=== PATIENT | female | born 1955 | race Hispanic/Latino ===

== ENCOUNTER 2017-11-03 14:47 | Observation (INO) | payer OTHER, SELFPAY ==
[2017-11-03 15:08] LABS: #Eosinphils 0.1 thou/uL (0.0-0.7); #Lymphocytes 1.8 thou/uL (1.20-3.40); #Monocytes 0.7 thou/uL (0.11-0.59); #Neutrophils 4.9 thou/uL (1.40-6.50); %Basophils 0.1 % (0.0-1.0); %Eosinophils 1.2 % (0.0-10.0); %Lymphocytes 23.6 % (21.0-51.0); %Monocytes 9.4 % (0.0-10.0); %Neutrophils 65.6 % (42.0-75.0); Hemoglobin 12.3 g/dL (12.0-16.0); Mean Corpuscular HGB CONC 32.9 g/dL (32.0-36.0); Mean Corpuscular Hemoglobin 30.1 pg (27.0-31.0); Mean Corpuscular Volume 91.5 fl (81.0-99.0); Mean Platelet Volume 8.6 fL (7.4-10.4); Platelet Count 199 thou/uL (130-400); RBC Distribution Width 13.7 % (11.5-14.5); Red Blood Cell (RBC) Count 4.08 mill/uL (4.20-5.40); White Blood Cell (WBC) Count 7.5 thou/uL (4.8-10.8)
[2017-11-03 15:28] LABS: ALT (SGPT) 52 U/L (8-55); AST (SGOT) 28 U/L (5-34); Alkaline Phosphatase 164 U/L (40-150); Anion Gap 12 mmol/L (10-20); BUN (Urea Nitrogen) 12 mg/dL (9.8-20.1); Bilirubin, Total 0.4 mg/dL (0.2-1.2); Calc. Creatinine Clearance 0 mL/min (70-130); Calcium 9.3 mg/dL (7.8-10.44); Carbon Dioxide 29 mmol/L (22-29); Chloride 106 mmol/L (98-107); Estimated GFR-MDRD 83; Globulin 3.3 g/dL (2.4-3.5); Glucose 119 mg/dL (70-105); Potassium 3.5 mmol/L (3.5-5.1); Protein, Total 7.3 g/dL (6.0-8.3); Sodium 143 mmol/L (136-145)
[2017-11-03 15:28] LABS: Bilirubin Negative (Negative); Blood, Urine Negative (Negative); Clarity CLEAR (Clear); Glucose, Urine (Dipstick) Negative (Negative); Leukocyte Trace (Negative); Nitrite Negative (Negative); Protein, Urine (Dipstick) Negative (Neg-Trace); Specific Gravity, Urine 1.012 (1.002-1.036)
[2017-11-03 15:32] LABS: Bacteria/HPF None Seen HPF (None Seen); Hyaline Casts/LPF 0-3 HYALINE CAST LPF (0-3 Hyaline); RBC/HPF 0-3 HPF (0-3); Squamous Epithelial None Seen HPF (0-3); WBC/HPF 0-3 HPF (0-3)
[2017-11-03] MEDS ORDERED: Nitroglycerin 0.4 MG TAB (25 Tab Bottle) ONE (15:57)
[2017-11-03] MEDS ORDERED: Nitroglycerin 2% Ointment 1 INCH/1 GM Packet ONE (15:57)
--- NOTE | 2017-11-03 16:18 | RAD ---
PORTABLE AP CHEST: Date: 11/03/17 HISTORY: Epigastric pain, bilateral flank pain for 1.5 months. Burning and frequent urination. FINDINGS: Cardiac silhouette and pulmonary vasculature are within normal limits. There is mild prominence of th e interstitial densities at the medial right lung base when compared to the prior exam. No consolidat ion or pleural fluid is seen. There is question of a nodular density overlying the right mid lung whi ch overlies the region of the scapula and anterior first rib. This could be related to superimpositio n of structures, and this was not seen on the prior exam. Lungs are otherwise clear. Vascular calcifi cations seen in the thoracic aorta. No other interval change. IMPRESSION: 1. Question of nodular density overlying left mid lung zone. Follow-up PA and lateral chest x-ray is recommended. 2. Mild nonspecific prominence of interstitial densities medial right lung base. POS: [facility]
[2017-11-03 17:00] LABS: CKMB 0.8 ng/mL (0-6.6); Troponin I Less than 0.010 ng/mL (< 0.028)
[2017-11-03] MEDS ORDERED: Labetalol HCl 100 MG/20 ML VIAL ONE (17:05)
--- NOTE | 2017-11-03 17:12 | CT ---
NONCONTRAST CT ABDOMEN AND PELVIS: Date: 11/03/17 HISTORY: Bilateral flank pain for 4 months. Patient reports burning and frequency with urination. COMPARISON: 02/14/15. FINDINGS: There is a punctate, nonobstructing calculus seen in the mid portion of the right kidney. There is no hydronephrosis and no ureteral calculus is visualized bilaterally. There is mild asymmetric right pe rinephric stranding compared to the left. Pyelonephritis on the right could not be excluded based on this exam. There is a small right pleural effusion. There is mild bibasilar atelectasis. Post cholecystectomy changes are noted. The liver, spleen, pancreas, bilateral adrenal glands, left kidney, and incompletely distended urinar y bladder demonstrate a normal CT appearance. The uterus is not visualized and probably related to prior hysterectomy. The appendix is visualized and filled with gas, and is normal in caliber. There are low density nodular structures in pelvis bilaterally. These structures were also seen on e prior study in 2014 and probably related to patient's ovaries. A tiny amount of free fluid in the pelvis is present. Vascular calcifications are seen in the abdominal aorta and iliac arteries. Multilevel degenerative changes seen in the lumbar spine, as well as visualized lower thoracic spine. There is subcutaneous soft tissue swelling seen at the lateral aspect of the abdomen bilaterally, gre ater on the left. IMPRESSION: 1. Asymmetric perinephric stranding seen on the right. This is overall nonspecific, but pyelonephrit is on the right cannot be entirely excluded. 2. Punctate nonobstructing right renal calculus. 3. No ureteral calculus is seen, and there is no hydronephrosis present. 4. Small right pleural effusion. 5. Hysterectomy. 6. No CT evidence of appendicitis. 7. Small areas of subcutaneous edema in the lower abdominal lateral subcutaneous soft tissues. POS: [facility]
[2017-11-03 18:15] LABS: Troponin I Less than 0.010 ng/mL (< 0.028)
[2017-11-03] MEDS ORDERED: Acetaminophen 325 MG TAB PO PRN (18:52)
[2017-11-03] MEDS ORDERED: Ondansetron HCl/PF 4 MG/2 ML Vial IVP PRN (18:52)
[2017-11-03] MEDS ORDERED: Ondansetron ODT 4 MG TAB SL PRN (18:52)
[2017-11-03 19:01] VITALS: BMI 33.3
[2017-11-03] MEDS ORDERED: Labetalol HCl 100 MG/20 ML VIAL SLOW IVP PRN (19:44)
[2017-11-03 21:09] LABS: Troponin I Less than 0.010 ng/mL (< 0.028)
[2017-11-03] MEDS ORDERED: Lisinopril 20 MG TAB PO SCH (21:30)
[2017-11-03] MEDS ORDERED: Atorvastatin Calcium 20 MG TAB PO SCH (21:45)
[2017-11-03] MEDS ORDERED: Carvedilol 25 MG TAB PO SCH (21:45)
[2017-11-03] MEDS: Ibuprofen 600 MG TAB PO PRN (21:53)
[2017-11-04] MEDS ORDERED: hydrALAZINE 20 MG/ML VIAL SLOW IVP SCH (04:30)
[2017-11-04] MEDS: Ibuprofen 600 MG TAB PO PRN ×2 (05:23→20:15)
[2017-11-04] MEDS: Carvedilol 25 MG TAB PO SCH ×2 (12:45→20:15)
[2017-11-04] MEDS: Lisinopril 20 MG TAB PO SCH (12:45)
[2017-11-04] MEDS: AMOXicillin 250 MG CAP PO SCH ×3 (12:45→20:15)
[2017-11-04] MEDS: Fluticasone Propionate Nasal Spray 16 gm Bottle NASAL SCH ×2 (12:45→20:16)
[2017-11-04] MEDS ORDERED: Insulin Detemir 100 UNITS/ML 20 UNITS in Pre-Filled Syringe 1 EACH SC SCH (13:15)
[2017-11-04] MEDS ORDERED: metFORMIN 500 MG TAB PO SCH (13:15)
[2017-11-04] MEDS ORDERED: HumaLOG 300 UNITS/3 ML VIAL SC SCH (13:15)
--- NOTE | 2017-11-04 14:11 | NM ---
STRESS ONLY NUCLEAR MEDICINE MYOCARDIAL PERFUSION SCAN: 11/04/2017 HISTORY: Chest pain. TECHNIQUE: SPECT imaging of the left ventricular myocardium was obtained during stress following the intravenous administration of 33 millicuries of technetium 99m labeled sestamibi. FINDINGS: No perfusion defect is seen on seen on short axis, vertical long axis, or horizontal long axis SPECT imaging of the left ventricular myocardium. Left ventricular wall motion is normal. The ejection fr action of the left ventricle is estimated at 71% with an EDV of 76 mL and an ESV of 22 mL. IMPRESSION: Unremarkable stress only nuclear medicine myocardial perfusion scan. POS: [facility]
[2017-11-04] MEDS ORDERED: ADENOSINE 60 MG/20 ML VIAL ONE (15:13)
[2017-11-04] MEDS ORDERED: NIFEdipine XL 60 MG TAB PO SCH (17:15)
[2017-11-04] MEDS: metFORMIN 500 MG TAB PO SCH (17:21)
[2017-11-04] MEDS: HumaLOG 300 UNITS/3 ML VIAL SC SCH (17:22)
[2017-11-04] MEDS: Insulin Detemir 100 UNITS/ML 20 UNITS in Pre-Filled Syringe 1 EACH SC SCH (20:15)
[2017-11-04] MEDS ORDERED: Atorvastatin Calcium 20 MG TAB PO SCH (21:00)
[2017-11-04] MEDS ORDERED: Ciprofloxacin 500 MG TAB PO SCH (23:45)
[2017-11-04] MEDS ORDERED: hydrALAZINE 20 MG/ML VIAL SLOW IVP PRN (23:54)
[2017-11-05 01:02] LABS: Bilirubin Negative (Negative); Blood, Urine Negative (Negative); Clarity CLOUDY (Clear); Glucose, Urine (Dipstick) Negative (Negative); Leukocyte Large (Negative); Nitrite Positive (Negative); Protein, Urine (Dipstick) 30 mg/dL (Neg-Trace); Specific Gravity, Urine 1.026 (1.002-1.036); pH, Urine 5.5 (5.0-9.0)
[2017-11-05 01:05] LABS: Bacteria/HPF 1+ HPF (None Seen); Hyaline Casts/LPF 0-3 HYALINE CAST LPF (0-3 Hyaline); Pathc Cast-AUWi Flag 0.72 (0-2.49); RBC/HPF 0-3 HPF (0-3)
[2017-11-05 05:13] LABS: Hemoglobin A1c 8.5 % (4.0-6.0)
[2017-11-05] MEDS ORDERED: Ciprofloxacin 500 MG TAB PO SCH (06:00)
[2017-11-05 07:46] VITALS: BP 124/58; TEMP 97.8
--- NOTE | 2017-11-05 07:46 | HP ---
DATE OF ADMISSION: 11/03/2017 CHIEF COMPLAINT: Flank pain. HISTORY OF PRESENT ILLNESS: Douglas is a 62-year-old female with past medical history of hypertension, diabetes mellitus, noncompliant with medications and diet who came because of urinary frequency, burning and bilateral flank pain. The patient also complains of leg edema as well. Also complains of palpitation and shortness of breath on exertion. The patient was evaluated in the ER, found to have markedly elevated blood pressure at 236/93. The patient was given labetalol and also given nitro and admitted for further evaluation and management. PAST MEDICAL HISTORY: 1. Insulin-dependent diabetes mellitus. 2. Hypertension. 3. Hyperlipidemia, noncompliant. The patient has not taken her blood pressure medicine, her insulin, for few days. ALLERGIES: No known drug allergies. FAMILY HISTORY: Nothing of interest. SOCIAL HISTORY: The patient lives with family. No history of smoking. No history of alcohol. REVIEW OF SYSTEMS: Unremarkable except for the flank pain and shortness of breath on exertion and palpitations. PHYSICAL EXAMINATION: GENERAL: The patient is alert, awake, oriented x3. VITAL SIGNS: Temperature 98, pulse 74, respirations 20 and blood pressure was 230/90. HEENT: Head is normocephalic, atraumatic. Pupils equal and reactive to light. Nasopharynx is pale and dry. no lesions. SKIN: Skin turgor decreased. NECK: Supple. No JVD. LUNGS: Bilateral air entry present, no rales, no rhonchi. CARDIAC: S1, S2 regular. ABDOMEN: Soft, no distention, mildly tender in both flank area. No guarding. No rigidity. Bowel sounds present. RECTAL: Deferred. CENTRAL NERVOUS SYSTEM: No focal deficit. LABORATORY AND X-RAY FINDINGS: CBC shows WBC 7.5, hemoglobin 12, hematocrit 37 , platelets 199,000. Metabolic panel: Sodium 142, potassium 3.5, chloride 106 , CO2 of 29, BUN 12, creatinine 0.7, glucose 190, CK-MB 0.8, troponin less than 0.010. BNP is 350. Urinalysis negative. Chest x-ray negative. Abdominal CT revealed possible pyelonephritis on the right side, as well as kidney stone in the right. ASSESSMENT: 1. Shortness of breath on exertion, rule out myocardial infarction. 2. Hypertension, uncontrolled. 3. Diabetes mellitus, uncontrolled. 4. Noncompliant with medications and diet. 5. Pyelonephritis. 6. Right kidney stone. PLAN: 1. Vital signs q.4 hours. 2. Activity: As tolerated. 3. Allergies: No known drug allergies. 4. Hep-Lock. 5. Continue home medication. 6. Hydralazine 10 mg IVP q.6 hours p.r.n. for systolic more than 160. 6. We will obtain stress test. 7. Cipro 500 b.i.d. MTDD
[2017-11-05] MEDS: Lisinopril 20 MG TAB PO SCH (08:25)
[2017-11-05] MEDS: Carvedilol 25 MG TAB PO SCH (08:26)
[2017-11-05] MEDS: metFORMIN 500 MG TAB PO SCH (08:26)
[2017-11-05] MEDS: Fluticasone Propionate Nasal Spray 16 gm Bottle NASAL SCH (08:28)
[2017-11-05] MEDS: HumaLOG 300 UNITS/3 ML VIAL SC SCH ×2 (08:31→12:05)
[2017-11-05] MEDS: Insulin Detemir 100 UNITS/ML 20 UNITS in Pre-Filled Syringe 1 EACH SC SCH (08:34)
[2017-11-05] MEDS: AMOXicillin 250 MG CAP PO SCH (08:36)
--- NOTE | 2017-11-05 08:53 | ULT ---
ULTRASOUND ABDOMEN COMPLETE: HISTORY: 62-year-old female with bilateral flank pain. FINDINGS: Liver: Normal size and echogenicity. Gallbladder: Surgically absent. Common duct: 4 mm Spleen: No splenomegaly. Pancreas: Nonspecific sonographic appearance. Kidneys: No hydronephrosis. Abdominal aorta: No aneurysm. Inferior vena cava: Unremarkable. IMPRESSION: 1. Status post cholecystectomy. 2. No hydronephrosis. NICOLLE Wong POS: [facility]
[2017-11-05] MEDS ORDERED: Hydrochlorothiazide 25 MG TAB PO SCH (09:00)
[2017-11-05] MEDS ORDERED: NIFEdipine XL 60 MG TAB PO SCH (09:00)
--- NOTE | 2017-11-05 09:16 | ULT ---
PELVIC ULTRASOUND: Date: 11-05-17 Comparison: None. History: Abnormal CT exam. Technique: Multiplanar grayscale sonographic imaging of the pelvis obtained with endovaginal and ibrahim sabdominal imaging: FINDINGS: The uterus is nonvisualized, consistent with the patient's history of hysterectomy. Neither ovary cou ld be visualized despite transabdominal and endovaginal imaging. No significant free fluid is seen. IMPRESSION: Nonvisualization of the ovaries and uterus. No significant free fluid. POS: [facility]
--- NOTE | 2017-11-06 14:48 | DIS ---
DATE OF ADMISSION: 11/03/2017 DATE OF DISCHARGE: 11/05/2017 ADMITTING DIAGNOSES: 1. Shortness of breath on exertion, rule out myocardial infarction. 2. Hypertension, uncontrolled. 3. Diabetes mellitus, uncontrolled. 4. Noncompliant with medications and diet. 5. Pyelonephritis, right side. 6. Right kidney stone. FINAL DIAGNOSES: 1. Shortness of breath, exertional, acute myocardial infarction. 2. Hypertension, uncontrolled, improved. 3. Diabetes mellitus, uncontrolled, improved. 4. Pyelonephritis, on antibiotics. 5. Right kidney stone, nonobstructing. BRIEF SUMMARY OF HOSPITAL COURSE: Ms. Cole is a 62-year-old female admitted because of flank pain. The patient also complained of shortness of breath on exertion. In view of risk factors, she was admitted to rule out myocardial infarction. Serial cardiac enzymes were done, they were within normal limits. A Cardiolite stress test was done, which was reported as negative for ischemia. The patient's blood pressure and blood sugars were markedly elevated. The patient has not taken medications for the last few days. She is noncompliant with diet and medication. The patient was started on new medications for blood pressure, lisinopril and Procardia after which her blood pressure was better controlled. Her insulin was restarted after which her blood sugars have improved. A pelvic and abdominal CT showed a stone in the right kidney, nonobstructing, but no evidence of any hydronephrosis, evidence of pyelonephritis on the right side. Abdominal ultrasound also did not reveal evidence of any hydronephrosis. The patient is being discharged home. At the time of discharge, she was stable. Her vital signs were stable. Lungs were clear. Abdomen was soft. Positive bowel sounds. DISCHARGE MEDICATIONS: Include Lipitor 20 mg daily, Coreg 25 mg b.i.d., ciprofloxacin 500 b.i.d. for 10 days, hydrochlorothiazide 25 mg daily, Levemir insulin 20 units b.i.d., Humalog insulin 12 units t.i.d. before meals, lisinopril 40 mg daily, metformin 500 mg b.i.d., Procardia XL 60 mg daily, amoxicillin 500 t.i.d. for dental problems and Motrin p.r.n. DISCHARGE INSTRUCTIONS: The patient will continue with ADA diet and come for followup within 2 weeks. [facility]
--- NOTE | 2017-11-16 22:58 | EKG ---
Test Reason : Blood Pressure : / mmHG Vent. Rate : 076 BPM Atrial Rate : 076 BPM P-R Int : 146 ms QRS Dur : 072 ms QT Int : 400 ms P-R-T Axes : 059 040 073 degrees QTc Int : 450 ms Normal sinus rhythm Nonspecific T wave abnormality Abnormal ECG Confirmed by PETER STANTON, SCARLETT ([id number]), editor book ROSA ISELA FRAUSTO ([id number]) on 11/16/2017 10:57:54 PM Referred By: Confirmed By:SCARLETT GREEN MD
--- NOTE | 2017-12-09 15:14 | STRESS ---
Acquisition Time: 2017-11-04 09:52:41 Total Exercise Time: 00:04:00 Test Indications: CHEST PAIN Medications: Protocol: ADENOSINE Max HR: 089 BPM 55% of Pred: 160 BPM Max BP: 160/088 mmHG Max Work Load: 1.0 METS RESTING ECG: NORMAL SINUS RHYTHM AT 77 BPM SYMPTOMS: DYSPNEA AND CHEST PAIN NORMAL BP RESPONSE ECTOPY: NONE ECG STRESS: 1.5-2.[address] DEPRESSION INTERPRETATION: POSITIVE ECG/AWAIT NUCLEAR IMAGES FOR DEFINITIVE DIAGNOSIS Confirmed by SHILA AGUILAR, JOEL ([id number]) on 12/09/2017 3:14:16 PM Referred By: MD Kyree SHAW Confirmed By:JOEL AGUILAR PA-C
== END 2017-11-05 12:57 | disposition home or self-care (01) ==
LOC: ERS 14:47 → 2SW 17:16
PROVIDERS: ADMIT Internal Medicine; ATTEND Internal Medicine
DX: R06.02 Shortness of breath (principal); I10 Essential (primary) hypertension; E11.9 Type 2 diabetes mellitus without complications; E78.5 Hyperlipidemia, unspecified; Z91.14 Patient's other noncompliance with medication regimen
CPT/HCPCS: 36415; 36416; 71045; 74176; 76700; 76856; 78452; 80053; 81003; 81015; 82553; 83036; 83690; 83880; 84484; 85025; 87077; 87086; 87186; 93005; 93017; 93306; 96374; 96375; 96376; A4216; A9500; G0378; J0153; J0360; J1815

== ENCOUNTER 2018-10-31 14:41 | Observation (INO) | payer OTHER, SELFPAY ==
[2018-10-31 15:26] LABS: Bilirubin Negative (Negative); Blood, Urine Negative (Negative); Clarity CLEAR (Clear); Glucose, Urine (Dipstick) Negative (Negative); Leukocyte Negative (Negative); Nitrite Negative (Negative); Protein, Urine (Dipstick) Negative (Neg-Trace); Urobilinogen 0.2 mg/dL (0.2-1.0); pH, Urine 7.5 (5.0-9.0)
[2018-10-31 15:35] LABS: Specific Gravity, Urine 1.003 (1.002-1.036)
[2018-10-31 15:41] LABS: #Eosinphils 0.1 thou/uL (0.0-0.7); #Lymphocytes 2.2 thou/uL (1.20-3.40); #Monocytes 0.5 thou/uL (0.11-0.59); #Neutrophils 4.7 thou/uL (1.40-6.50); %Basophils 0.6 % (0.0-1.0); %Eosinophils 1.4 % (0.0-10.0); %Lymphocytes 28.8 % (21.0-51.0); %Monocytes 7.1 % (0.0-10.0); %Neutrophils 62.2 % (42.0-75.0); Hemoglobin 11.3 g/dL (12.0-16.0); Mean Corpuscular HGB CONC 32.8 g/dL (32.0-36.0); Mean Corpuscular Hemoglobin 30.5 pg (27.0-31.0); Mean Platelet Volume 9.3 fL (7.4-10.4); Platelet Count 206 thou/uL (130-400); RBC Distribution Width 12.6 % (11.5-14.5); Red Blood Cell (RBC) Count 3.69 mill/uL (4.20-5.40); White Blood Cell (WBC) Count 7.6 thou/uL (4.8-10.8)
[2018-10-31 15:56] LABS: ALT (SGPT) 27 U/L (8-55); AST (SGOT) 16 U/L (5-34); Albumin 3.8 g/dL (3.4-4.8); Alkaline Phosphatase 134 U/L (40-150); Anion Gap 13 mmol/L (10-20); BUN (Urea Nitrogen) 14 mg/dL (9.8-20.1); Bilirubin, Total 0.3 mg/dL (0.2-1.2); Calc. Creatinine Clearance 0 mL/min (70-130); Calcium 8.9 mg/dL (7.8-10.44); Carbon Dioxide 26 mmol/L (23-31); Chloride 104 mmol/L (98-107); Estimated GFR-MDRD 63; Globulin 2.7 g/dL (2.4-3.5); Glucose 220 mg/dL (80-115); Lipase 20 U/L (8-78); Potassium 4.1 mmol/L (3.5-5.1); Protein, Total 6.5 g/dL (6.0-8.3); Sodium 139 mmol/L (136-145)
[2018-10-31] MEDS ORDERED: Lidocaine Viscous Sol 2% 15 ml UD Cup ONE (16:09)
[2018-10-31] MEDS ORDERED: Aspirin 325 MG TAB ONE (16:09)
[2018-10-31] MEDS ORDERED: Mag-Al 1200 mg/1200 mg/30 ML UDCUP ONE (16:09)
--- NOTE | 2018-10-31 16:19 | RAD ---
PA AND LATERAL VIEWS CHEST: Date: 10/31/18 HISTORY: Hypertension. Abdominal pain. FINDINGS: The heart size is normal. The lungs are well expanded without focal areas of consolidation, pneumotho races, or pleural effusions. There are degenerative changes in the spine and acromioclavicular joints . IMPRESSION: No radiographic evidence of acute cardiopulmonary process. POS: C
[2018-10-31] MEDS ORDERED: Nitroglycerin 0.4 MG TAB 1 EACH ONE (18:37)
[2018-10-31 19:16] LABS: Troponin I Less than 0.010 ng/mL (< 0.028)
[2018-10-31 22:18] LABS: Troponin I Less than 0.010 ng/mL (< 0.028)
[2018-11-01] MEDS ORDERED: cloNIDine 0.1 MG TAB PO PRN (00:04)
[2018-11-01] MEDS ORDERED: HumaLOG 300 UNITS/3 ML VIAL SC PRN ×2 (00:14)
[2018-11-01] MEDS ORDERED: Verapamil 120 MG TAB PO SCH ×2 (00:30→09:00)
[2018-11-01] MEDS ORDERED: hydrALAZINE 20 MG/ML VIAL SLOW IVP SCH (02:30)
[2018-11-01] MEDS ORDERED: metFORMIN 500 MG TAB PO SCH (08:00)
[2018-11-01] MEDS ORDERED: Carvedilol 25 MG TAB PO SCH (09:00)
[2018-11-01] MEDS ORDERED: INSULIN GLARGINE SC SCH (09:00)
[2018-11-01] MEDS ORDERED: Spironolactone 25 MG TAB PO SCH (09:00)
[2018-11-01] MEDS ORDERED: Fluticasone Propionate Nasal Spray 16 gm Bottle NASAL SCH (09:00)
[2018-11-01] MEDS ORDERED: ADENOSINE 60 MG/20 ML VIAL ONE (11:16)
[2018-11-01 13:06] VITALS: BP 147/65; TEMP 97.5
--- NOTE | 2018-11-01 13:18 | NM ---
MYOCARDIAL PERFUSION SCAN: DATE: 11/01/2018. PROVIDED CLINICAL HISTORY: Chest pain. RADIOPHARMACEUTICAL: 31.8 mCi Technetium 99m labeled sestamibi IV stress. 10.4 mCi Technetium 99m labeled sestamibi IV rest. FINDINGS: There is normal, homogeneous distribution of the radiotracer throughout the left ventricular myocardi um. Gated data demonstrate normal myocardial wall motion and thickening with calculated LEVF of 84%. TID is 0.84. IMPRESSION: 1. No scintigraphic evidence for ischemia. 2. Normal left ventricular ejection fraction. POS: [facility]
--- NOTE | 2018-11-01 15:38 | HP ---
CHIEF COMPLAINT: Chest pain and abdominal pain. HISTORY OF PRESENT ILLNESS: Ms. Cole is a 63-year-old female with past medical history of diabetes mellitus and hypertension, came with abdominal pain in the epigastric area as well as chest discomfort that started 2 days ago and she noted her blood pressure also increased. The patient also started having some shortness of breath and mild chest pressure. Did not have any nausea or vomiting. She just has some abdominal bloating. No diaphoresis. No dizziness. The patient was evaluated in the ER, found to have markedly elevated blood pressure. Her initial blood pressure was 230/98, it came down to 116/73 later on after medication. The patient is admitted to rule out myocardial infarction. The patient received nitroglycerin in the ER as well as aspirin and GI cocktail. PAST MEDICAL HISTORY: 1. Diabetes mellitus. 2. Hypertension. 3. Hyperlipidemia. 4. Negative stress test in 2018. ALLERGIES: NKDA. FAMILY HISTORY: Nothing contributory. SOCIAL HISTORY: Lives with family. No history of smoking. No history of alcohol intake. REVIEW OF SYSTEMS: Unremarkable except for the chest pressure as well as epigastric pain. PHYSICAL EXAMINATION: GENERAL: On exam, the patient is alert, awake, and oriented x3. VITAL SIGNS: Temperature 98, pulse 65, respirations 20, and blood pressure 207/90. HEENT: Head is normocephalic, atraumatic. Pupils are equal and reactive. Nasopharynx is pink, moist. NECK: Supple. No JVD. LUNGS: Bilateral air entry present. No rales. No rhonchi. HEART: S1 and S2, regular. ABDOMEN: Soft. No distention. No tenderness. No organomegaly. Bowel sounds are present. RECTAL: No symptoms. CENTRAL NERVOUS SYSTEM: No focal deficits. LABORATORY DATA: CBC shows WBC 7.6, hemoglobin 11.3, hematocrit 34, and platelets 206. Metabolic panel; sodium 139, potassium 4, chloride 104, CO2 of 26, BUN 14, creatinine 0.9, and glucose 220. BNP is 164. Troponin I less than 0.010. Urinalysis is negative. IMAGING DATA: Chest x-ray negative. EKG showed normal sinus rhythm. No acute ST-T changes seen. ASSESSMENT: 1. Chest pressure, rule out myocardial infarction. 2. Hypertension, uncontrolled. 3. Abdominal discomfort. 4. Diabetes mellitus, uncontrolled. 5. Hyperlipidemia. PLAN: 1. Vital signs q.4 hours. 2. Activities as tolerated. 3. Allergies, NKDA. 4. Hep-Lock. 5. Troponin I q.8 hours x2. 6. We will continue her home medications. 7. Accu-Chek before meals and at bedtime, sliding scale mild with regular insulin. Increase verapamil to twice a day. 8. Clonidine 0.1 mg q.6 p.r.n. 9. Stress test. Job ID: [id number]
[2018-11-01] MEDS ORDERED: Atorvastatin Calcium 20 MG TAB PO SCH (21:00)
--- NOTE | 2018-11-07 04:03 | DIS ---
DATE OF ADMISSION: 10/31/2018 DATE OF DISCHARGE: 11/01/2018 ADMITTING DIAGNOSES: 1. Chest pressure, rule out myocardial infarction. 2. Hypertension, uncontrolled. 3. Abdominal discomfort. 4. Diabetes mellitus, uncontrolled. 5. Hyperlipidemia. FINAL DIAGNOSES: 1. Chest pressure, no evidence of acute myocardial infarction, negative Cardiolite stress test. 2. Hypertension, uncontrolled, improved. 3. Abdominal discomfort, resolved. 4. Diabetes mellitus, uncontrolled, improved. 5. Hyperlipidemia. BRIEF SUMMARY OF HOSPITAL COURSE: Ms. Cole is a 63-year-old female admitted because of chest pressure, also elevated blood pressure and diabetes mellitus uncontrolled. her medications were adjusted to control Blood pressure and blood glucose. Serial cardiac enzymes were done. Troponins were in normal range . Cardiolite stress test was interpreted as no evidence of ischemia. The patient did not have any more chest pain. In view of improvement, the patient is being discharged. PHYSICAL EXAMINATION: GENERAL: At the time of discharge, she was stable. VITAL SIGNS: Stable. LUNGS: Clear. HEART: Heart sounds regular. ABDOMEN: Soft, nontender. Bowel sounds present. DISCHARGE MEDICATIONS: Include; 1. Metformin 500 b.i.d. 2. Flonase nasal spray b.i.d. 3. Coreg 25 mg b.i.d. 4. Levemir insulin 25 units b.i.d. 5. Humalog insulin 80 units b.i.d. 6. Simvastatin 40 mg daily. 7. Verapamil 120 b.i.d. 8. Lipitor 20 mg daily. 9. Clonidine 0.1 b.i.d. 10. Nexium 40 mg daily. 11. Maalox p.r.n. The patient will come for followup in 2 weeks. Job ID: [id number] [facility]
== END 2018-11-01 15:50 | disposition home or self-care (01) ==
LOC: ERS 14:41 → 2SW 22:14
PROVIDERS: ADMIT Internal Medicine; ATTEND Internal Medicine
DX: R07.89 Other chest pain (principal); R10.13 Epigastric pain; I10 Essential (primary) hypertension; E11.9 Type 2 diabetes mellitus without complications; E78.5 Hyperlipidemia, unspecified; Z79.4 Long term (current) use of insulin; Z79.899 Other long term (current) drug therapy; Z88.8 Allergy status to other drugs, medicaments and biological substances
CPT/HCPCS: 36415; 36416; 71046; 78452; 80053; 81003; 83690; 83880; 84484; 85025; 90471; 90686; 90732; 93005; 93017; 96374; A9500; G0008; G0009; G0378; J0153; J0360; J1825